=== PATIENT | female | born 1980 | race Caucasian/White ===

== ENCOUNTER 2017-06-20 11:27 | Inpatient (IN) | payer OTHER ==
[2017-06-20 12:14] VITALS: BMI 38.2
--- NOTE | 2017-06-20 15:26 | HP ---
COWS - Scale Resting Pulse: 1= [place] 81-100 Sweatin=Flushed/Facial Moisture Restless Observation: 1= Difficult to Sit Still Pupil Size: 2= Moderately Dilated Bone or Joint Aches: 2= Severe Diffuse Aches Runny Nose/ Eye Tearin= Nasal Congestion GI Upset > 30mins: 2= Nausea/Diarrhea Tremor Observation: 2= Slight Tremor Visible Yawning Observation: 0= None Anxiety or Irritability: 1=Feels Anxious/Irritable Goose Flesh Skin: 0=Smooth Skin COWS Score: 14 Admission [facility] Chief Complaint: Withdrawal sx. Allergies/Adverse Reactions: Allergies Allergy/AdvReac Type Severity Reaction Status Date / Time No Known Allergies Allergy Verified 06/20/17 15:20 History of Present Illness: 37 y/o woman with a long hx. of heroin dependence is admitted for detox. Pt. denies previous detox, she reports being drug free x 1 1/2 yr. Pt. was on OTP and left in 2006. Exam Limitations: No Limitations - Ebola screening Have you traveled outside of the country in the last 21 days: No Have you had contact with anyone from an Ebola affected area: No Have you been sick,other than usual withdrawal symptoms: No Do you have a fever: No - Review of Systems Constitutional: Diaphoresis EENT: reports: Nose Congestion Respiratory: reports: No Symptoms reported Cardiac: reports: No Symptoms Reported GI: reports: Diarrhea, Nausea : reports: Frequency Musculoskeletal: reports: Back Pain, Joint Pain, Muscle Pain Integumentary: reports: Sweating Neuro: reports: Tremors Endocrine: reports: No Symptoms Reported Hematology: reports: No Symptoms Reported Psychiatric: reports: No Sypmtoms Reported Other Systems: Reviewed and Negative Patient History - Patient Medical History Hx Anemia: No Hx Asthma: Yes (albuterol) Hx Chronic Obstructive Pulmonary Disease (COPD): No Hx Cancer: No Hx Cardiac Disorders: No Hx Congestive Heart Failure: No Hx Hypertension: No Hx Hypercholesterolemia: No Hx Pacemaker: No HX Cerebrovascular Accident: No Hx Seizures: No Hx Dementia: No Hx Diabetes: No Hx Gastrointestinal Disorders: Yes (dyspepsia) Hx Liver Disease: No Hx Genitourinary Disorders: No Hx Sexually Transmitted Disorders: No Hx Renal Disease (ESRD): No Hx Thyroid Disease: No Hx Human Immunodeficiency Virus (HIV): No Hx Hepatitis C: No Hx Depression: Yes Hx Suicide Attempt: Yes (2009 slashing forearms) Hx Bipolar Disorder: Yes Hx Schizophrenia: No - Patient Surgical History Past Surgical History: No - PPD History Previous Implant?: Yes Documented Results: Negative w/o proof Implanted On Prior [facility] Admission?: No PPD to be Administered?: Yes - Reproductive History Patient is a Female of Child Bearing Age (11 -55 yrs old): Yes LMP comment: Irregular menses Patient : No - Smoking Cessation Smoking history: Current every day smoker Aproximately how many cigarettes per day: 4 Hx Chewing Tobacco Use: No Initiated information on smoking cessation: Yes 'Breaking Loose' booklet given: 06/20/17 - Substance & Tx. History Hx Alcohol Use: No Hx Substance Use: Yes Substance Use Type: Heroin Hx Substance Use Treatment: Yes (OTP in 2006) - Substances Abused Heroin Route: Inhalation Frequency: Daily Amount used: 10 bags Age of first use: 19 Date of Last Use: 06/18/17 Family Disease History - Family Disease History Family Disease History: Heart Disease: Mother (HTN), CA: Father (Brain, ), Other: Brother (Alcohol) Admission Physical Exam [facility] - Vital Signs Vital Signs: Vital Signs - 24 hr 06/20/17 12:08 Temperature 97.1 F L Pulse Rate 90 Respiratory 20 Rate Blood Pressure 130/89 - Physical General Appearance: Yes: Obese, Tremorous, Sweating, Anxious HEENTM: Yes: Nasal Congestion, Rhinorrhea Respiratory: Yes: Chest Non-Tender, Lungs Clear, Normal Breath Sounds Neck: Yes: Supple Breast: Yes: Breast Exam Deferred Cardiology: Yes: Regular Rhythm, Regular Rate, S1, S2 Abdominal: Yes: Normal Bowel Sounds, Non Tender, Soft, Protuberent Genitourinary: Yes: Within Normal Limits Back: Yes: Within Normal Limits Musculoskeletal: Yes: Within Normal Limits Extremities: Yes: Tremors Neurological: Yes: Fully Oriented, Alert Integumentary: Yes: Diaphoresis Lymphatic: Yes: Within Normal Limits - Diagnostic (1) Opioid dependence with withdrawal Current Visit: Yes Status: Acute Cleared for Admission [facility] - Detox or Rehab [facility] Level of Care: Medically Managed Detox Regimen/Protocol: Methadone [facility] Breath Alcohol Content Breath Alcohol Content: 0 Urine Pregancy Test - Result Urine Test Results: Negative- NO Line Present Urine Drug Screen - Results Drug Screen Negative: No Urine Drug Screen Results: OPI-Opiates
[2017-06-20] MEDS ORDERED: ACETAMINOPHEN 325 MG TABLET (FP) PO PRN (15:37)
[2017-06-20] MEDS ORDERED: METHADONE HCL 10 MG TABLET (FOR DETOX USE ONLY) PO ONE ×3 (15:37→23:00)
[2017-06-20] MEDS ORDERED: MAG HYDROX/AL HYDROX/SIMETH 30 ML UNIT-DOSE CUP PO PRN (15:37)
[2017-06-20] MEDS ORDERED: NICOTINE POLACRILEX 2 MG GUM BC PRN (15:37)
[2017-06-20] MEDS ORDERED: guaiFENesin/D-METHORPHAN HB 10 ML UNIT-DOSE CUPS PO PRN (15:37)
[2017-06-20] MEDS ORDERED: LOPERAMIDE HCL 2 MG CAPSULE PO PRN (15:37)
[2017-06-20] MEDS ORDERED: P-EPHED 60MG/TRIPROLIDI 2.5MG TABLET PO PRN (15:37)
[2017-06-20] MEDS ORDERED: MAGNESIUM HYDROX 2400MG/30ML ORAL SUSPENSION 30 ML CUP PO PRN (15:37)
[2017-06-20] MEDS ORDERED: MAGNESIUM CITRATE 300 ML BOTTLE PO PRN (15:37)
[2017-06-20] MEDS ORDERED: MENTHOL/PHENOL 1 EACH UD MM PRN (15:37)
[2017-06-20] MEDS: diazePAM 5 MG TABLET PO PRN ×2 (17:52→22:26)
[2017-06-20 21:46] LABS: URINE APPEARANCE SLCLOUDY; URINE BILIRUBIN NEGATIVE (NEGATIVE); URINE BLOOD NEGATIVE (NEGATIVE); URINE COLOR YELLOW; URINE GLUCOSE (UA) 3+ (NEGATIVE); URINE KETONE 1+ (NEGATIVE); URINE NITRITE NEGATIVE (NEGATIVE); URINE PROTEIN NEGATIVE (NEGATIVE); URINE UROBILINOGEN NEGATIVE mg/dL (0.2-1.0)
[2017-06-20] MEDS: THIAMINE HCL 100 MG TABLET (FP) PO SCH (22:26)
[2017-06-20] MEDS: diphenhydrAMINE HCL 50 MG CAPSULE PO PRN (22:26)
[2017-06-21] MEDS ORDERED: METHADONE HCL 10 MG TABLET (FOR DETOX USE ONLY) PO ONE (10:00)
[2017-06-21 10:09] LABS: MCHC 32.4 g/dl (32.0-36.0); MEAN CELL VOLUME 89.5 fl (80-96); MEAN PLT VOLUME 11.2 fl (7.5-11.1); PLATELET COUNT 225 K/MM3 (134-434); RDW 12.3 % (11.6-15.6); WHITE BLOOD COUNT 9.9 K/mm3 (4.0-10.0)
[2017-06-21] MEDS: PRENATAL VITAMINS W/ FOLIC ACID TABLET (FP) PO SCH (11:01)
[2017-06-21] MEDS: IBUPROFEN 400 MG TABLET (FP) PO PRN (11:01)
--- NOTE | 2017-06-21 11:08 | PN ---
BHS COWS - Scale Resting Pulse: 0= [place] 80 or Below Sweatin=Flushed/Facial Moisture Restless Observation: 1= Difficult to Sit Still Pupil Size: 0= Normal to Room Light Bone or Joint Aches: 2= Severe Diffuse Aches Runny Nose/ Eye Tearin= Nasal Congestion GI Upset > 30mins: 1= Stomach Cramp Tremor Observation of Outstretched Hands: 2= Slight Tremor Visible Yawning Observation: 2= >3x During Session Anxiety or Irritability: 2=Irritable/Anxious Goose Flesh Skin: 0=Smooth Skin COWS Score: 13 BHS Progress Note (SOAP) Subjective: shakes sweats agitation body aches Objective: 06/21/17 11:07 Vital Signs Temperature 98.1 F 06/21/17 10:03 Pulse Rate 77 06/21/17 10:03 Respiratory Rate 20 06/21/17 10:03 Blood Pressure 110/66 06/21/17 10:03 O2 Sat by Pulse Oximetry (%) Laboratory Tests 06/20/17 06/21/17 18:06 07:00 WBC 9.9 RBC 4.56 Hgb 13.2 Hct 40.8 MCV 89.5 MCH 29.0 MCHC 32.4 RDW 12.3 Plt Count 225 MPV 11.2 H Urine Color Yellow Urine Appearance Slcloudy Urine pH 5.0 Urine Protein Negative Urine Glucose (UA) 3+ H Urine Ketones 1+ H Urine Blood Negative Urine Nitrite Negative Urine Bilirubin Negative Urine Urobilinogen Negative labs pending aaox3 ambulating no acute distress Assessment: 06/21/17 11:07 withdrawal sx Plan: continue detox increase fluids labs pending
[2017-06-21 11:41] LABS: SICKLE CELL SCREEN NEGATIVE (NEGATIVE)
--- NOTE | 2017-06-21 12:42 | CONSULT ---
[facility] Psychiatric Consult - Data Date of interview: 06/21/17 Admission source: [facility] Identifying data: First admission to [facility] for this 37 y/o [place]-born female seeking detox treatment on for heroin dependence.Patient is single,a mother of two,domiciled,unemployed and supported on SSI/SSD benefits. Substance Abuse History: Confirmed by patient in this encounter. Smoking Cessation. Smoking history: Current every day smoker. Aproximately how many cigarettes per day: 4. Hx Chewing Tobacco Use: No. Initiated information on smoking cessation: Yes. 'Breaking Loose' booklet given: 06/20/17. - Substance & Tx. History. Hx Alcohol Use: No. Hx Substance Use: Yes. Substance Use Type : Heroin. Hx Substance Use Treatment: Yes (OTP in 2006). - Substances Abused. Heroin. Route: Inhalation. Frequency: Daily. Amount used: 10 bags. Age of first use: 19. Date of Last Use: 06/18/17 Medical History: bronchial asthma,dyspepsia and obesity. Psychiatric History: History of 4-5 psychiatric hospitalizations.Patient is known to [facility] and [facility].Diagnosed with Bipolar Disorder.Medicated with seroquel 50 mg/hs.Ms Mccollum used to be on valproate (discontinued by OPD psychiatrist).She is currently followed at the [facility] OPD clinic.Noted self-report of suicide attempts via self- mutilation (cutting). Physical/Sexual Abuse/Trauma History: Patient denies history of abuse. Additional Comment: Urine Drug Screen Results: OPI-Opiates.Noted. Mental Status Exam - Mental Status Exam Alert and Oriented to: Time, Place, Person Patient Appearance: Well Groomed (obese) Mood: Hopeful, Euthymic Affect: Appropriate, Normal Range Patient Behavior: Appropriate, Cooperative Speech Pattern: Clear (bilingual) Voice Loudness: Normal Thought Process: Intact, Goal Oriented Thought Disorder: Not Present Hallucinations: Denies Suicidal Ideation: Denies Homicidal Ideation: Denies Insight/Judgement: Poor Sleep: Poorly, Difficulty falling asleep Appetite: Good Muscle strength/Tone: Normal Gait/Station: Normal Psychiatric Findings - Problem List ([place] 1, 2,3) (1) Opioid dependence with withdrawal Current Visit: Yes Status: Acute (2) Nicotine dependence Current Visit: Yes Status: Acute (3) Substance induced mood disorder Current Visit: Yes Status: Acute (4) Insomnia Current Visit: Yes Status: Acute - Initial Treatment Plan Initial Treatment Plan: Psychoeducation.Detoxification.Seroquel 50 mg po hs .Side effects/benefits discussed with patient.She agrees with careplan.Observation.
--- NOTE | 2017-06-21 12:45 | EKG ---
Test Reason : Blood Pressure : / mmHG Vent. Rate : 096 BPM Atrial Rate : 096 BPM P-R Int : 158 ms QRS Dur : 080 ms QT Int : 358 ms P-R-T Axes : 060 039 047 degrees QTc Int : 452 ms NORMAL SINUS RHYTHM POSSIBLE LEFT ATRIAL ENLARGEMENT BORDERLINE ECG NO PREVIOUS ECGS AVAILABLE Confirmed by DAISY BERUMEN, MARIBELL ([id number]) on 06/21/2017 12:44:40 PM Referred By: Lily Barksdale Confirmed By:MARIBELL VILLA MD
[2017-06-21] MEDS: NICOTINE 14 MG/24 HOURS TOPICAL PATCH TD SCH (14:25)
[2017-06-21 15:17] LABS: URINE LEUK ESTERASE Negative (NEGATIVE)
[2017-06-21 15:58] LABS: ALBUMIN 2.8 g/dl (3.4-5.0); ALK PHOS 97 U/L (45-117); ANION GAP 8 (8-16); BILIRUBIN,TOTAL 0.2 mg/dL (0.2-1.0); CALCIUM 8.6 mg/dL (8.5-10.1); CO2 28 mmol/L (21-32); CREATININE 0.6 mg/dL (0.55-1.02); GLUCOSE,RANDOM 236 mg/dL (74-106); SGOT/AST 10 U/L (15-37); SGPT/ALT 25 U/L (12-78); TOT PROT 6.2 g/dl (6.4-8.2)
[2017-06-21] MEDS: diazePAM 5 MG TABLET PO PRN (22:25)
[2017-06-21] MEDS: THIAMINE HCL 100 MG TABLET (FP) PO SCH (22:25)
[2017-06-21] MEDS: diphenhydrAMINE HCL 50 MG CAPSULE PO PRN (22:25)
[2017-06-21] MEDS: QUEtiapine FUMARATE 50 MG TABLET PO SCH (22:25)
[2017-06-22] MEDS ORDERED: METHADONE HCL 5 MG TABLET (FOR DETOX USE ONLY) PO ONE (10:00)
[2017-06-22] MEDS: PRENATAL VITAMINS W/ FOLIC ACID TABLET (FP) PO SCH (11:16)
[2017-06-22] MEDS: NICOTINE 14 MG/24 HOURS TOPICAL PATCH TD SCH (11:17)
--- NOTE | 2017-06-22 11:44 | PN ---
BHS COWS - Scale Resting Pulse: 0= [place] 80 or Below Sweatin=Flushed/Facial Moisture Restless Observation: 1= Difficult to Sit Still Pupil Size: 0= Normal to Room Light Bone or Joint Aches: 2= Severe Diffuse Aches Runny Nose/ Eye Tearin= None GI Upset > 30mins: 2= Nausea/Diarrhea Tremor Observation of Outstretched Hands: 2= Slight Tremor Visible Yawning Observation: 2= >3x During Session Anxiety or Irritability: 1=Feels Anxious/Irritable Goose Flesh Skin: 0=Smooth Skin COWS Score: 12 BHS Progress Note (SOAP) Subjective: agitation anxiety sweats shakes interrupted sleep Objective: 06/22/17 11:43 Vital Signs Temperature 98.1 F 06/22/17 09:28 Pulse Rate 77 06/22/17 09:28 Respiratory Rate 18 06/22/17 09:28 Blood Pressure 143/95 06/22/17 09:28 O2 Sat by Pulse Oximetry (%) Laboratory Tests 06/20/17 06/21/17 06/21/17 18:06 07:00 07:00 WBC 9.9 RBC 4.56 Hgb 13.2 Hct 40.8 MCV 89.5 MCH 29.0 MCHC 32.4 RDW 12.3 Plt Count 225 MPV 11.2 H Sickle Cell Screen Negative Sodium 139 Potassium 4.0 Chloride 103 Carbon Dioxide 28 Anion Gap 8 BUN 13 Creatinine 0.6 Creat Clearance w eGFR > 60 Random Glucose 236 H Calcium 8.6 Total Bilirubin 0.2 AST 10 L ALT 25 Alkaline Phosphatase 97 Total Protein 6.2 L Albumin 2.8 L Urine Color Yellow Urine Appearance Slcloudy Urine pH 5.0 Ur Specific [place] 1.010 Urine Protein Negative Urine Glucose (UA) 3+ H Urine Ketones 1+ H Urine Blood Negative Urine Nitrite Negative Urine Bilirubin Negative Urine Urobilinogen Negative Ur Leukocyte Esterase Negative RPR Titer 06/21/17 07:00 WBC RBC Hgb Hct MCV MCH MCHC RDW Plt Count MPV Sickle Cell Screen Sodium Potassium Chloride Carbon Dioxide Anion Gap BUN Creatinine Creat Clearance w eGFR Random Glucose Calcium Total Bilirubin AST ALT Alkaline Phosphatase Total Protein Albumin Urine Color Urine Appearance Urine pH Ur Specific [place] Urine Protein Urine Glucose (UA) Urine Ketones Urine Blood Urine Nitrite Urine Bilirubin Urine Urobilinogen Ur Leukocyte Esterase RPR Titer Nonreactive aaox3 ambulating no acute distress Assessment: 06/22/17 11:44 withdrawal sx Plan: continue detox increase fluids immodium prn
[2017-06-22] MEDS: IBUPROFEN 400 MG TABLET (FP) PO PRN ×2 (15:25→22:33)
[2017-06-22] MEDS: hydrOXYzine PAMOATE 50 MG CAPSULE (FP) PO PRN (22:33)
[2017-06-22] MEDS: THIAMINE HCL 100 MG TABLET (FP) PO SCH (22:33)
[2017-06-22] MEDS: diazePAM 5 MG TABLET PO PRN (22:33)
[2017-06-22] MEDS: QUEtiapine FUMARATE 50 MG TABLET PO SCH (22:33)
[2017-06-23] MEDS ORDERED: METHADONE HCL 5 MG TABLET (FOR DETOX USE ONLY) PO ONE (10:00)
--- NOTE | 2017-06-23 10:11 | PN ---
S Progress Note (SOAP) Subjective: Interrupted sleep, anxious, mild diarrhea, back pain Objective: 06/23/17 10:10 Vital Signs Temperature 97.9 F 06/23/17 06:34 Pulse Rate 75 06/23/17 06:34 Respiratory Rate 18 06/23/17 06:34 Blood Pressure 126/71 06/23/17 06:34 O2 Sat by Pulse Oximetry (%) Laboratory Last Values WBC 9.9 K/mm3 (4.0-10.0) 06/21/17 07:00 RBC 4.56 M/mm3 (3.60-5.2) 06/21/17 07:00 Hgb 13.2 GM/dL (10.7-15.3) 06/21/17 07:00 Hct 40.8 % (32.4-45.2) 06/21/17 07:00 MCV 89.5 fl (80-96) 06/21/17 07:00 MCH 29.0 pg (25.7-33.7) 06/21/17 07:00 MCHC 32.4 g/dl (32.0-36.0) 06/21/17 07:00 RDW 12.3 % (11.6-15.6) 06/21/17 07:00 Plt Count 225 K/MM3 (134-434) 06/21/17 07:00 MPV 11.2 fl (7.5-11.1) H 06/21/17 07:00 Sickle Cell Screen Negative (NEGATIVE) 06/21/17 07:00 Sodium 139 mmol/L (136-145) 06/21/17 07:00 Potassium 4.0 mmol/L (3.5-5.1) 06/21/17 07:00 Chloride 103 mmol/L (98-107) 06/21/17 07:00 Carbon Dioxide 28 mmol/L (21-32) 06/21/17 07:00 Anion Gap 8 (8-16) 06/21/17 07:00 BUN 13 mg/dL (7-18) 06/21/17 07:00 Creatinine 0.6 mg/dL (0.55-1.02) 06/21/17 07:00 Creat Clearance w eGFR > 60 (>60) 06/21/17 07:00 Random Glucose 236 mg/dL (74-106) H 06/21/17 07:00 Calcium 8.6 mg/dL (8.5-10.1) 06/21/17 07:00 Total Bilirubin 0.2 mg/dL (0.2-1.0) 06/21/17 07:00 AST 10 U/L (15-37) L 06/21/17 07:00 ALT 25 U/L (12-78) 06/21/17 07:00 Alkaline Phosphatase 97 U/L (45-117) 06/21/17 07:00 Total Protein 6.2 g/dl (6.4-8.2) L 06/21/17 07:00 Albumin 2.8 g/dl (3.4-5.0) L 06/21/17 07:00 Urine Color Yellow 06/20/17 18:06 Urine Appearance Slcloudy 06/20/17 18:06 Urine pH 5.0 (5.0-8.0) 06/20/17 18:06 Ur Specific [place] 1.010 (1.005-1.025) 06/20/17 18:06 Urine Protein Negative (NEGATIVE) 06/20/17 18:06 Urine Glucose (UA) 3+ (NEGATIVE) H 06/20/17 18:06 Urine Ketones 1+ (NEGATIVE) H 06/20/17 18:06 Urine Blood Negative (NEGATIVE) 06/20/17 18:06 Urine Nitrite Negative (NEGATIVE) 06/20/17 18:06 Urine Bilirubin Negative (NEGATIVE) 06/20/17 18:06 Urine Urobilinogen Negative mg/dL (0.2-1.0) 06/20/17 18:06 Ur Leukocyte Esterase Negative (NEGATIVE) 06/20/17 18:06 RPR Titer Nonreactive (NONREACTIVE) 06/21/17 07:00 Labs noted. Random glucose 236mg/dl. Patient denies h/o DM. Repeat BGM Assessment: 06/23/17 10:15 Withdrawal sx Plan: Continue detox Repeat BGM Stat Insulin as ordered
[2017-06-23] MEDS: PRENATAL VITAMINS W/ FOLIC ACID TABLET (FP) PO SCH (10:56)
[2017-06-23] MEDS: NICOTINE 14 MG/24 HOURS TOPICAL PATCH TD SCH (10:57)
[2017-06-23] MEDS: diazePAM 5 MG TABLET PO PRN ×2 (10:58→14:20)
[2017-06-23] MEDS ORDERED: INSULIN (NOVOLOG) ASPART 100 UNITS/ML 10ML VIAL ONE ×2 (11:30→16:57)
[2017-06-23] MEDS: INSULIN SLIDING SCALE (NOVOLOG) 1 VIAL SQ SCH ×2 (11:35→17:24)
[2017-06-23] MEDS: diphenhydrAMINE HCL 50 MG CAPSULE PO PRN (22:23)
[2017-06-23] MEDS: QUEtiapine FUMARATE 50 MG TABLET PO SCH (22:23)
[2017-06-23] MEDS: THIAMINE HCL 100 MG TABLET (FP) PO SCH (22:23)
[2017-06-24] MEDS ORDERED: INSULIN (NOVOLOG) ASPART 100 UNITS/ML 10ML VIAL ONE ×4 (08:02→17:05)
[2017-06-24] MEDS: INSULIN SLIDING SCALE (NOVOLOG) 1 VIAL SQ SCH ×3 (08:11→17:14)
--- NOTE | 2017-06-24 09:42 | PN ---
BHS Progress Note (SOAP) Subjective: agitation sweats Objective: 06/24/17 09:40 Vital Signs Temperature 97.9 F 06/24/17 06:00 Pulse Rate 91 H 06/24/17 06:00 Respiratory Rate 20 06/24/17 06:00 Blood Pressure 98/61 06/24/17 06:00 O2 Sat by Pulse Oximetry (%) aaox3 ambulating no acute distress Assessment: 06/24/17 09:40 withdrawal sx Plan: continue detox increase fluids monitor glucose level d/c in am
[2017-06-24] MEDS ORDERED: METHADONE HCL 10 MG TABLET (FOR DETOX USE ONLY) PO ONE (10:00)
[2017-06-24] MEDS: PRENATAL VITAMINS W/ FOLIC ACID TABLET (FP) PO SCH (10:35)
[2017-06-24] MEDS: NICOTINE 14 MG/24 HOURS TOPICAL PATCH TD SCH (10:35)
[2017-06-24] MEDS: hydrOXYzine PAMOATE 50 MG CAPSULE (FP) PO PRN (17:12)
[2017-06-24] MEDS: diphenhydrAMINE HCL 50 MG CAPSULE PO PRN (22:28)
[2017-06-24] MEDS: QUEtiapine FUMARATE 50 MG TABLET PO SCH (22:28)
[2017-06-24] MEDS: THIAMINE HCL 100 MG TABLET (FP) PO SCH (22:28)
[2017-06-25] MEDS ORDERED: METHADONE HCL 5 MG TABLET (FOR DETOX USE ONLY) PO ONE (06:00)
[2017-06-25] MEDS: INSULIN SLIDING SCALE (NOVOLOG) 1 VIAL SQ SCH ×2 (07:51→11:53)
[2017-06-25 09:44] VITALS: BP 115/72; PULSE 88; TEMP 98.1
--- NOTE | 2017-06-25 11:08 | DS ---
[facility] Detox Discharge Summary Admission Date: 06/20/17 Discharge Date: 06/25/17 - History Present History: Opioid Dependence Additional Comments: Detox completed. Alert, oriented x 3 and stable. Patient encouraged to follow up with PMD at [facility] for medical management Pertinent Past History: Nicotine Dependence and Insomnia - Physical Exam Results Vital Signs: Vital Signs Temperature 98.1 F 06/25/17 09:44 Pulse Rate 88 06/25/17 09:44 Respiratory Rate 19 06/25/17 09:44 Blood Pressure 115/72 06/25/17 09:44 O2 Sat by Pulse Oximetry (%) Laboratory Last Values WBC 9.9 K/mm3 (4.0-10.0) 06/21/17 07:00 RBC 4.56 M/mm3 (3.60-5.2) 06/21/17 07:00 Hgb 13.2 GM/dL (10.7-15.3) 06/21/17 07:00 Hct 40.8 % (32.4-45.2) 06/21/17 07:00 MCV 89.5 fl (80-96) 06/21/17 07:00 MCH 29.0 pg (25.7-33.7) 06/21/17 07:00 MCHC 32.4 g/dl (32.0-36.0) 06/21/17 07:00 RDW 12.3 % (11.6-15.6) 06/21/17 07:00 Plt Count 225 K/MM3 (134-434) 06/21/17 07:00 MPV 11.2 fl (7.5-11.1) H 06/21/17 07:00 Sickle Cell Screen Negative (NEGATIVE) 06/21/17 07:00 Sodium 139 mmol/L (136-145) 06/21/17 07:00 Potassium 4.0 mmol/L (3.5-5.1) 06/21/17 07:00 Chloride 103 mmol/L (98-107) 06/21/17 07:00 Carbon Dioxide 28 mmol/L (21-32) 06/21/17 07:00 Anion Gap 8 (8-16) 06/21/17 07:00 BUN 13 mg/dL (7-18) 06/21/17 07:00 Creatinine 0.6 mg/dL (0.55-1.02) 06/21/17 07:00 Creat Clearance w eGFR > 60 (>60) 06/21/17 07:00 POC Glucometer 280 UNITS (()) 06/25/17 06:06 Random Glucose 236 mg/dL (74-106) H 06/21/17 07:00 Calcium 8.6 mg/dL (8.5-10.1) 06/21/17 07:00 Total Bilirubin 0.2 mg/dL (0.2-1.0) 06/21/17 07:00 AST 10 U/L (15-37) L 06/21/17 07:00 ALT 25 U/L (12-78) 06/21/17 07:00 Alkaline Phosphatase 97 U/L (45-117) 06/21/17 07:00 Total Protein 6.2 g/dl (6.4-8.2) L 06/21/17 07:00 Albumin 2.8 g/dl (3.4-5.0) L 06/21/17 07:00 Urine Color Yellow 06/20/17 18:06 Urine Appearance Slcloudy 06/20/17 18:06 Urine pH 5.0 (5.0-8.0) 06/20/17 18:06 Ur Specific [place] 1.010 (1.005-1.025) 06/20/17 18:06 Urine Protein Negative (NEGATIVE) 06/20/17 18:06 Urine Glucose (UA) 3+ (NEGATIVE) H 06/20/17 18:06 Urine Ketones 1+ (NEGATIVE) H 06/20/17 18:06 Urine Blood Negative (NEGATIVE) 06/20/17 18:06 Urine Nitrite Negative (NEGATIVE) 06/20/17 18:06 Urine Bilirubin Negative (NEGATIVE) 06/20/17 18:06 Urine Urobilinogen Negative mg/dL (0.2-1.0) 06/20/17 18:06 Ur Leukocyte Esterase Negative (NEGATIVE) 06/20/17 18:06 RPR Titer Nonreactive (NONREACTIVE) 06/21/17 07:00 Labs noted Pertinent Admission Physical Exam Findings: withdrawal sx - Treatment Hospital Course: Detox Protocol Followed, Detoxed Safely, Responded well, Discharged Condition Good - Medication Discharge Medications: Ambulatory Orders Quetiapine Fumarate [Seroquel -] 50 mg PO HS #30 tablet 06/21/17 - Diagnosis (1) Insomnia Current Visit: Yes Status: Acute (2) Nicotine dependence Current Visit: Yes Status: Acute (3) Opioid dependence with withdrawal Current Visit: Yes Status: Acute - AMA Did Patient Leave Against Medical Advice: No
[2017-06-25] MEDS: NICOTINE 14 MG/24 HOURS TOPICAL PATCH TD SCH (11:17)
[2017-06-25] MEDS: PRENATAL VITAMINS W/ FOLIC ACID TABLET (FP) PO SCH (11:17)
[2017-06-25] MEDS ORDERED: INSULIN (NOVOLOG) ASPART 100 UNITS/ML 10ML VIAL ONE (11:54)
== END 2017-06-25 12:34 | disposition home or self-care (01) | DRG 897 ==
LOC: YASAS 11:27 → Y6N 15:53
PROVIDERS: ADMIT Internal Medicine; ATTEND Internal Medicine
PROC: HZ2ZZZZ Detoxification Services for Substance Abuse Treatment (ICD-10-PCS; principal; 2017-06-20)
DX: F11.23 Opioid dependence with withdrawal (principal); F17.210 Nicotine dependence, cigarettes, uncomplicated; F19.24 Other psychoactive substance dependence with psychoactive substance-induced mood disorder; G47.00 Insomnia, unspecified; J45.909 Unspecified asthma, uncomplicated; R10.13 Epigastric pain; E66.9 Obesity, unspecified; Z68.38 Body mass index [BMI] 38.0-38.9, adult; Z91.5 Personal history of self-harm
CPT/HCPCS: 36415; 80053; 81003; 85027; 85660; 86593; 93005; 93010